=== PATIENT | female | born 2000 | race Two or more races ===

== ENCOUNTER 2022-07-21 07:29 | Inpatient (IN) | payer OTHER ==
[~2022-07-21] VITALS: Ht 162.6 cm; Wt 72.6 kg
[2022-07-21] MEDS ORDERED: PRENATAL VITAM1 EAC4 PO (08:57)
[2022-07-21] MEDS ORDERED: VALTREX1000 MG PO (08:58)
== END 2022-07-24 13:08 | disposition home or self-care (01) | DRG 788 ==
LOC: OB/GYN 07:29 → LDR 07:29 → OB/GYN 21:11
PROVIDERS: ADMIT Obstetrics & Gynecology; ATTEND Obstetrics & Gynecology
PROC: 4A1HXCZ Monitoring of Products of Conception, Cardiac Rate, External Approach (ICD-10-PCS; 2022-07-21)
PROC: 10D00Z1 Extraction of Products of Conception, Low, Open Approach (ICD-10-PCS; principal; 2022-07-21 19:15)
DX: O62.1 Secondary uterine inertia (principal); O48.0 Post-term pregnancy; O99.824 Streptococcus B carrier state complicating childbirth; Z3A.40 40 weeks gestation of pregnancy; Z37.0 Single live birth; Z20.822 Contact with and (suspected) exposure to COVID-19